=== PATIENT | female | born 1935 | race Caucasian/White ===

== ENCOUNTER → 2016-03-27 | Outpatient (CLI) | payer MEDICARE, BC ==
--- NOTE | 2016-03-27 16:06 | XCELERA REPORT ---
[address] [address] Lower Extremity Arterial Evaluation Name: RADHA NICHOLS Age: 80 yrs Gender: Female : 1935 Patient Status: Outpatient Patient Location: Study Date: 03/27/2016 01:22 PM Procedure: A color flow and duplex scan of the lower extremity arteries was performed bilaterally with velocity and waveform anaylsis. Ankle brachial indicies performed. Reason For Study: ULCER Ordering Physician: CA MOLINA Performed By: Mike Martin Measurements and Calculations Right Left KENO WRITER PSV 194.2 189.8 cm/sec Prox PFA PSV -102.5 -88.0 cm/sec Dist SFA PSV -115.7 -150.9 cm/sec Prox Pop A PSV 109.4 cm/sec Dist GREYSON PSV 120.1 110.0 cm/sec Dist HORSERADISH MAKER PSV 96.8 -73.9 cm/sec Bryan Pedis PSV 125.7 104.5 cm/sec Right Side Arterial Evaluation Normal velocity, waveform biphasic flow from the Common Femoral artery to the infrageniculate vessels. Triphasic in the Deep Femoral. The ankle-brachial index was not obtainable due to patient discomfort. 0-19 % stenosis is noted at the inflow, sparing the Deep Femoral. Left Side Arterial Evaluation Normal velocity, waveform Triphasic flow from the Common Femoral artery to the Femoral. Biphasic in the infrageniculate vessels. The ankle-brachial index was not obtainable due to patient discomfort. 0-19 % stenosis is noted at the infrageniculate level. Interpretation Summary Mild hemodynamically significant lesions in the bilateral lower extremities, on duplex imaging, at rest. : CA MOLINA > Andres Luis
== END ==
LOC: SP 12:55
PROVIDERS: ATTEND Nurse Practitioner Family
DX: L97.222 Non-pressure chronic ulcer of left calf with fat layer exposed (principal)
CPT/HCPCS: 93925

== ENCOUNTER → 2018-03-24 | Outpatient (CLI) | payer MEDICARE, BC ==
[2018-03-24 17:54] LABS: ANION GAP 8 (5-19); BLOOD UREA NITROGEN 11 mg/dL (7-20); CALCIUM 9.2 mg/dL (8.4-10.2); CARBON DIOXIDE 32 mmol/L (22-30); CHLORIDE 101 mmol/L (98-107); GLUCOSE 121 mg/dL (75-110); POTASSIUM 3.7 mmol/L (3.6-5.0); SODIUM 141.4 mmol/L (137-145)
== END ==
LOC: OD 16:54
PROVIDERS: ATTEND Internal Medicine
DX: E87.6 Hypokalemia (principal); R19.7 Diarrhea, unspecified
CPT/HCPCS: 36415; 80048; 87045; 87205; 87493